=== PATIENT | male | born 1985 | race Caucasian/White ===

== ENCOUNTER 2021-10-21 12:30 | Emergency (ER) | payer SELFPAY ==
[2021-10-21 13:36] LABS: Bilirubin Neg (Negative); Blood, Urine Negative (Negative); Clarity Clear (Clear); Glucose, Urine (Dipstick) Normal (Negative); Ketone, Urine Negative (Negative); Leukocyte Negative (Negative); Nitrite Negative (Negative); Protein, Urine (Dipstick) Negative (Neg-Trace); Urobilinogen Normal mg/dL (Less than 2)
[2021-10-25 09:25] LABS: Chlam.trachomatis by PCR,Urine Not Detected (NotDetected)
== END 2021-10-21 15:26 | disposition home or self-care (01) ==
LOC: CSHERS 12:30
DX: N50.812 Left testicular pain (principal); I86.1 Scrotal varices; E78.00 Pure hypercholesterolemia, unspecified; E78.5 Hyperlipidemia, unspecified; I10 Essential (primary) hypertension
CPT/HCPCS: 76870; 81003; 87491; 87591; 93976

== ENCOUNTER 2024-03-13 15:31 | Emergency (ER) | payer OTHER ==
[2024-03-13] MEDS ORDERED: methylPREDNISolone Sod Succ/PF 125 MG/2 ML VIAL ONE (15:49)
[2024-03-13] MEDS ORDERED: diphenhydrAMINE 50 MG/ML VIAL ONE (15:49)
[2024-03-13] MEDS ORDERED: EPINEPHrine 1 MG/ML VIAL ONE (15:49)
[2024-03-13] MEDS ORDERED: Famotidine/PF 20 mg/2ml Vial ONE (15:49)
[2024-03-13] MEDS ORDERED: Lorazepam 2 MG/ML VIAL ONE ×2 (15:55→18:21)
[2024-03-13 16:15] LABS: #Basophils 0.01 10x3/uL (0.0-0.2); #Eosinphils 0.04 10x3/uL (0.0-0.5); #Monocytes 0.22 10x3/uL (0.0-1.1); #Neutrophils 2.88 10x3/uL (1.5-8.4); %Basophils 0.2 % (0.0-2.0); %Eosinophils 0.7 % (0.0-6.0); %Lymphocytes 47.9 % (18.0-47.0); %Monocytes 3.6 % (0.0-10.0); %Neutrophils 47.3 % (40.0-75.0); Hematocrit 50.3 % (38.8-50.0); Hemoglobin 17.6 g/dL (13.5-17.5); Mean Corpuscular Hemoglobin 30.7 pg (27.0-33.0); Mean Corpuscular Volume 87.6 fL (81.2-95.1); Mean Platelet Volume 9.9 fL (7.4-10.4); Platelet Count 247 10x3/uL (150-450); RBC Distribution Width 14.4 % (11.5-14.5); Red Blood Cell (RBC) Count 5.74 10x6/uL (4.32-5.72); White Blood Cell (WBC) Count 6.1 10x3/uL (3.5-10.5)
[2024-03-13 16:23] LABS: ALT (SGPT) 23 U/L (8-55); AST (SGOT) 24 U/L (5-34); Albumin 3.4 g/dL (3.5-5.0); Alkaline Phosphatase 127 U/L (40-110); Anion Gap 13 mmol/L (10-20); BUN (Urea Nitrogen) 7 mg/dL (8.9-20.6); Bilirubin, Total 0.6 mg/dL (0.2-1.2); Calc. Creatinine Clearance 0 mL/min (70-130); Calcium 8.7 mg/dL (7.8-10.44); Carbon Dioxide 26 mmol/L (22-29); Chloride 104 mmol/L (98-107); Estimated GFR 66; Glucose 96 mg/dL (70-105); Protein, Total 7.4 g/dL (6.0-8.3); Sodium 139 mmol/L (136-145)
[2024-03-13 16:27] LABS: Troponin I Less than 0.010 ng/mL (< 0.028)
[2024-03-13] MEDS ORDERED: levETIRAcetam 500 MG (5 mL) VIAL ONE (16:40)
[2024-03-13 17:29] LABS: Bilirubin Neg (Negative); Blood, Urine Negative (Negative); Clarity Slightly Cloudy (Clear); Glucose, Urine (Dipstick) Normal (Negative); Ketone, Urine Negative (Negative); Leukocyte 100 (Negative); Nitrite Negative (Negative); Protein, Urine (Dipstick) 15 mg/dl (Neg-Trace)
[2024-03-13 17:36] LABS: Amphetamine Not Detected (NotDetected); Barbiturates Screen Not Detected (NotDetected); Benzodiazepine Screen Not Detected (NotDetected); Cocaine Metabolite Screen Not Detected (NotDetected); Methadone Not Detected (NotDetected); Methamphetamine Not Detected (NotDetected); Opiate Screen Detected (NotDetected); Oxycodone Screen Not Detected (NotDetected); Phencyclidine (PCP) Not Detected (NotDetected); THC/Cannabinoid Screen Not Detected (NotDetected); Tricyclic Screen Not Detected (NotDetected)
[2024-03-13 17:39] LABS: Bacteria/HPF 1+ HPF (None Seen); CAUTI Indications for Culture Dysuria,urgency,freq; RBC/HPF None Seen HPF (0-3); Squamous Epithelial 0-3 HPF (0-3); Transitional Epithelial 0-3 HPF (None Seen)
[2024-03-13 17:40] LABS: Urine Culture Reflex No No
[2024-03-13] MEDS ORDERED: EPINEPHrine 4 MG in Dextrose 5% in Water 250 ML IV SCH (17:45)
[2024-03-13 18:38] LABS: Acetaminophen Less than 10 mcg/mL (10.0-30.0); Alcohol Less than 10.0 mg/dL (Less than 10); Salicylate Less than 8.0 mg/dL (15.0-30.0)
== END 2024-03-13 19:40 | disposition short-term general hospital (02) ==
LOC: CSHERS 15:31
DX: T78.2XXA Anaphylactic shock, unspecified, initial encounter (principal); N39.0 Urinary tract infection, site not specified; N17.9 Acute kidney failure, unspecified; E78.00 Pure hypercholesterolemia, unspecified; I10 Essential (primary) hypertension; Z20.2 Contact with and (suspected) exposure to infections with a predominantly sexual mode of transmission; Z79.899 Other long term (current) drug therapy
CPT/HCPCS: 36415; 71045; 80053; 80306; 80307; 81001; 83605; 84484; 85025; 93005; 96361; 96365; 96372; 96375; 96376; J0171; J1200; J1953; J2060; J2930; J7070; S0028

== ENCOUNTER 2025-08-19 16:47 | Emergency (ER) | payer SELFPAY ==
[2025-08-19 17:38] LABS: Glucose, Urine (Dipstick) Normal (Negative); Leukocyte Negative (Negative); Protein, Urine (Dipstick) 30 mg/dl (Neg-Trace); Specific Gravity, Urine 1.025 (1.005-1.030)
[2025-08-19 17:54] LABS: CAUTI Indications for Culture Pelvic or flank pain; RBC/HPF None Seen HPF (0-3); WBC/HPF None Seen HPF (0-3)
[2025-08-19 17:55] LABS: Bacteria/HPF Rare-Few HPF (None Seen); Urine Culture Reflex No No
[2025-08-19] MEDS ORDERED: Azithromycin 250 MG TAB ONE (18:01)
[2025-08-19] MEDS ORDERED: metroNIDAZOLE 500 MG TAB ONE (18:08)
[2025-08-19] MEDS ORDERED: cefTRIAXone (ROCEPHIN) 500 MG VIAL ONE (18:10)
[2025-08-20 00:06] LABS: Chlam.trachomatis by PCR,Urine Not Detected (NotDetected); GC N.gonorrhoeae PCR,UrineVOID Not Detected (NotDetected)
== END 2025-08-19 18:33 | disposition home or self-care (01) ==
LOC: CSHERS 16:47
DX: Z20.2 Contact with and (suspected) exposure to infections with a predominantly sexual mode of transmission (principal); I10 Essential (primary) hypertension
CPT/HCPCS: 81001; 87491; 87591; 96372; 99283; J0696

== ENCOUNTER 2025-08-23 07:21 | Emergency (ER) | payer SELFPAY ==
[2025-08-23] MEDS ORDERED: cefTRIAXone (ROCEPHIN) 500 MG VIAL ONE (08:03)
[2025-08-23 08:11] LABS: Glucose, Urine (Dipstick) Normal (Negative); Leukocyte 25 (Negative); Protein, Urine (Dipstick) 30 mg/dl (Neg-Trace); Specific Gravity, Urine 1.025 (1.005-1.030)
[2025-08-23 08:25] LABS: Bacteria/HPF 1+ HPF (None Seen); CAUTI Indications for Culture Dysuria,urgency,freq; RBC/HPF None Seen HPF (0-3); Urine Culture Reflex No No
[2025-08-23 22:36] LABS: Chlam.trachomatis by PCR,Urine Not Detected (NotDetected); GC N.gonorrhoeae PCR,UrineVOID Not Detected (NotDetected)
== END 2025-08-23 08:25 | disposition home or self-care (01) ==
LOC: CSHERS 07:21
DX: R36.9 Urethral discharge, unspecified (principal); I10 Essential (primary) hypertension; Z79.899 Other long term (current) drug therapy
CPT/HCPCS: 81001; 87491; 87591; 96372; 99283; J0696

== ENCOUNTER 2025-09-16 06:59 | Emergency (ER) | payer SELFPAY ==
[2025-09-16 08:37] LABS: Glucose, Urine (Dipstick) Normal (Negative); Leukocyte 100 (Negative); Protein, Urine (Dipstick) 30 mg/dl (Neg-Trace); Specific Gravity, Urine 1.020 (1.005-1.030)
[2025-09-16 08:54] LABS: Bacteria/HPF Rare-Few HPF (None Seen); CAUTI Indications for Culture Pelvic or flank pain; RBC/HPF None Seen HPF (0-3)
[2025-09-16 08:56] LABS: Urine Culture Reflex No No
[2025-09-17 00:45] LABS: Chlam.trachomatis by PCR,Urine Not Detected (NotDetected); GC N.gonorrhoeae PCR,UrineVOID Not Detected (NotDetected)
== END 2025-09-16 08:23 | disposition home or self-care (01) ==
LOC: CSHERS 06:59
DX: N41.9 Inflammatory disease of prostate, unspecified (principal); I10 Essential (primary) hypertension
CPT/HCPCS: 81001; 87491; 87591; 99283